=== PATIENT | male | born 1980 | race Caucasian/White ===

== ENCOUNTER 2018-12-14 13:52 | Emergency (ER) | payer OTHER ==
[~2018-12-14] VITALS: Ht 188 cm; Wt 86.2 kg
--- NOTE | 2018-12-14 13:52 | NUR ---
Patient BIBA BLS, transferred to bed 9. RN evaluating patient at bedside.
[2018-12-14 14:05] VITALS: BP 140/92
--- NOTE | 2018-12-14 14:28 | NUR ---
PT BIB EMS WITH C/O "I HAVE BEEN HAVING STRANGE EPISODES, I FEEL NUMB FROM THE BRIDGE OF MY NOSE DOWN". PT DENIES PAIN AND STATES, "MY EARS FEEL HOT". PT DENIES N/V/D, CP, AND SOB AT THIS TIME. PT STATES, "THE DOC TOLD ME I HAVE SCHIZOAFFECTIVE DISORDER BUT IM NOT SURE ABOUT THAT, I DONT THINK I DO...I THINK HES WRONG". PT PRESENTS WITH A DELAYED AND MUMBLED SPEECH. PT DENIES SI AND HI. ER MD TO SEE PT. ALLERGY: HALDOL HX: SCHIZOAFFECTIVE W/ BIPOLAR, AUTISM, HTN RX: LISINOPRIL, I-THEANINE
--- NOTE | 2018-12-14 15:56 | NUR ---
Telepsychiatry consultation ordered as requested by Dr. Bettencourt.
--- NOTE | 2018-12-14 16:09 | NUR ---
MOTHER AT BEDSIDE WITH PT.
--- NOTE | 2018-12-14 16:22 | NUR ---
Psychiatrist evaluating patient via telepsychiatry.
--- NOTE | 2018-12-14 16:50 | NUR ---
DIETARY TRAY ORDERED
--- NOTE | 2018-12-14 17:34 | NUR ---
DIETARY TRAY PROVIDED TO PT AT BEDSIDE.
--- NOTE | 2018-12-14 18:41 | NUR ---
PT RESTING IN BED WITH MOTHER AT BEDSIDE.
--- NOTE | 2018-12-14 19:17 | NUR ---
RECEIVED BEDSIDE REPORT FROM MARYAN BASURTO/MARYAN HANSON. PT IS RESTING COMFORTABLY WITH MOM AT BEDSIDE. NO COMPLAINTS AT THIS TIME.
--- NOTE | 2018-12-14 19:18 | NUR ---
Pt report given to Ayo STEINBERG. Transfer of care at this time.
[2018-12-14 19:30] VITALS: BP 151/89
--- NOTE | 2018-12-14 19:30 | NUR ---
Patient discharged with v/s stable. Written and verbal after care instructions given and explained. Patient alert, oriented and verbalized understanding of instructions. Ambulatory with steady gait. All questions addressed prior to discharge. ID band removed. Patient advised to follow up with PMD. Rx of Seroquel given. Patient educated on indication of medication including possible reaction and side effects. Opportunity to ask questions provided and answered.
== END 2018-12-14 19:30 | disposition home or self-care (01) ==
LOC: MED 13:52
DX: F25.9 Schizoaffective disorder, unspecified (principal); F84.0 Autistic disorder; I10 Essential (primary) hypertension; Z88.8 Allergy status to other drugs, medicaments and biological substances
CPT/HCPCS: 99283